=== PATIENT | male | born 1945 | race Caucasian/White ===

== ENCOUNTER 2020-01-26 17:05 | Inpatient (IN) | payer MEDICARE, OTHER ==
[~2020-01-26] VITALS: Ht 180.3 cm; Wt 133.2 kg
[2020-01-26] MEDS ORDERED: FLOMAX0.4 MG PO (17:21)
[2020-01-26] MEDS ORDERED: METFORMIN HCL500 M1 PO (17:22)
[2020-01-26] MEDS ORDERED: OMEPRAZOLE20 M1 (17:22)
[2020-01-26] MEDS ORDERED: COZAAR50 MG PO (17:22)
[2020-01-26] MEDS ORDERED: BAYER CHEWABLE81 MG PO (17:23)
[2020-01-26] MEDS ORDERED: CRESTOR40 MG PO (17:23)
[2020-01-26] MEDS ORDERED: SYNTHROID150 MCG PO (17:23)
[2020-01-26] MEDS ORDERED: ASCORBIC ACID500 MG PO (17:24)
[2020-01-26] MEDS ORDERED: IBUPROFEN600 MG PO (17:24)
[2020-01-26] MEDS ORDERED: ALBUTEROL SULF8.5 GM (17:25)
[2020-01-26] MEDS ORDERED: NITROQUICK0.4 MG SL (17:25)
[2020-01-26] MEDS ORDERED: MEDROL DOSE PACK4 MG PO (17:26)
[2020-01-26] MEDS ORDERED: AUGMENTIN 875-11 TAB PO (17:27)
[2020-01-26 17:58] LABS: BASOPHILS 0.1 % (0-2); EOSINOPHILS 0.1 % (0-7); HEMATOCRIT 40.8 % (42.0-54.0); HEMOGLOBIN 13.5 g/dL (13.5-17.5); IMMATURE GRANULOCYTES 0.2 % (0-5); MCH 29.5 pg (26.0-34.0); MCHC 33.1 g/dL (31.0-37.0); MCV 89.1 fL (80.0-100.0); MONOCYTES 6.9 % (2-11); NEUTROPHILS 78.7 % (40-80); PLATELET COUNT 291 10x3/uL (130-400); RBC 4.58 10x6/uL (4.20-6.10); RDW 13.7 % (11.5-14.5); WBC 12.8 10x3/uL (4.8-10.8)
[2020-01-26 18:08] LABS: CALC OSMOLALITY 293 mosm/kg (275-300); CARBON DIOXIDE 24.9 mmol/L (21.0-32.0); CHLORIDE - SERUM 108 mmol/L (98-107); CREATININE - SERUM 1.2 mg/dL (0.6-1.3); GLUCOSE 171 mg/dL (74-106); POTASSIUM - SERUM 4.1 mmol/L (3.5-5.1); SODIUM 143 mmol/L (136-145); UREA NITROGEN 26 mg/dL (7-18); eGFR NON AFRICAN AMERICAN 63 mL/min (90-120)
[2020-01-26 18:16] LABS: APTT 28.8 SECONDS (22.8-39.4); INR 0.96 (0.85-1.17); PROTIME 12.7 SECONDS (11.6-15.0)
[2020-01-26 18:31] LABS: ALBUMIN 3.9 g/dL (3.4-5.0); ALKALINE PHOSPHATASE 90 U/L (30-120); ALT (SGPT) 26 U/L (10-68); BILIRUBIN - TOTAL 0.23 mg/dL (0.2-1.3); CKMB 1.7 U/L (0.0-3.6); CREATINE KINASE 167 UL (21-232); PROTEIN - SERUM 7.5 g/dL (6.4-8.2)
[2020-01-26 18:44] LABS: TROPONIN-I 0.063 ng/mL (0.000-0.060)
--- NOTE | 2020-01-26 18:44 | NUR ---
LACTIC ACID OF 2.2 TROPONIN 0.063 CALLED BY NARDA GRADES 1 THRU 6 VISITING TEACHER AT THIS TIME.
--- NOTE | 2020-01-26 21:50 | NUR ---
RECEIVED FROM ER. A&OX4, [id number] @[id number], MEDS AND HISTORY COMPLETE, PLACED ON [id number], BED IS LOW, SRX2, CALL LIGHT IN REACH, SET UP PT CPAP, AT BEDSIDE, WILL CONTINUE PLAN OF CARE
[2020-01-26 23:24] LABS: CKMB 3.6 U/L (0.0-3.6); CREATINE KINASE 151 UL (21-232); TROPONIN-I 0.633 ng/mL (0.000-0.060)
[2020-01-27 01:16] VITALS: BP 115/67
[2020-01-27 02:08] LABS: BASOPHILS 0.1 % (0-2); EOSINOPHILS 0.6 % (0-7); HEMATOCRIT 35.6 % (42.0-54.0); HEMOGLOBIN 11.5 g/dL (13.5-17.5); IMMATURE GRANULOCYTES 0.5 % (0-5); LYMPHOCYTES 26.4 % (15-50); MCH 28.8 pg (26.0-34.0); MCHC 32.3 g/dL (31.0-37.0); MCV 89.2 fL (80.0-100.0); MEAN PLATELET VOLUME 8.8 fL (7.4-10.4); MONOCYTES 10.4 % (2-11); PLATELET COUNT 256 10x3/uL (130-400); RBC 3.99 10x6/uL (4.20-6.10)
[2020-01-27 02:34] LABS: WBC 8.8 10x3/uL (4.8-10.8)
--- NOTE | 2020-01-27 02:47 | NUR ---
HR-58 DECREASED CARDIZEM TO 5
[2020-01-27 03:04] LABS: CALCIUM 8.4 mg/dL (8.5-10.1); CARBON DIOXIDE 24.2 mmol/L (21.0-32.0); CHLORIDE - SERUM 110 mmol/L (98-107); CKMB 3.9 U/L (0.0-3.6); CREATINE KINASE 137 UL (21-232); CREATININE - SERUM 1.1 mg/dL (0.6-1.3); PHOSPHOROUS 3.5 mg/dL (2.5-4.9); POTASSIUM - SERUM 4.3 mmol/L (3.5-5.1); PRO BNP 859 pg/mL (0-125); SODIUM 143 mmol/L (136-145); UREA NITROGEN 23 mg/dL (7-18); eGFR NON AFRICAN AMERICAN 70 mL/min (90-120)
[2020-01-27 03:22] LABS: CALC OSMOLALITY 289 mosm/kg (275-300); GLUCOSE 112 mg/dL (74-106); TROPONIN-I 0.781 ng/mL (0.000-0.060)
--- NOTE | 2020-01-27 05:00 | NUR ---
ADMISSION ASSESSMENT COMPLETED.
[2020-01-27 05:45] VITALS: BP 106/67
[2020-01-27 06:31] VITALS: BP 115/67; BMI 42.5
[2020-01-27 07:56] LABS: CKMB 3.8 U/L (0.0-3.6); CREATINE KINASE 131 UL (21-232)
--- NOTE | 2020-01-27 08:20 | NUR ---
NEW BAG OF CARDIZEM GIVEN AT THIS TIME AND ALSO GAVE AM MEDS. PT A/O X4, RESP EVEN AND NONLABORED ON RA. PT DENIES ANY NEEDS AT THIS TIME. CALL LIGHT IN REACH,NAD NOTED, WILL CONTINUE TO MONITOR.
[2020-01-27 13:22] VITALS: Ht 180.3 cm; Wt 133.2 kg
[2020-01-27 13:33] VITALS: BP 139/73
[2020-01-27 17:19] LABS: SPECIFIC GRAVITY 1.015 (1.005-1.020)
[2020-01-27 17:20] LABS: BILIRUBIN NEGATIVE (NEGATIVE); GLUCOSE NEGATIVE (NEGATIVE); KETONE NEGATIVE (NEGATIVE); NITRITE NEGATIVE (NEGATIVE); UROBILINOGEN NORMAL (NORMAL)
--- NOTE | 2020-01-27 18:34 | NUR ---
RESP CULTURE NOT COLLECTED DUE TO PT NOT PRODUCING ANY SPUTUM.
--- NOTE | 2020-01-27 19:30 | NUR ---
REPORT RECIEVED AND INITIAL ROUNDS COMPLETED. PT RESTING IN BED. NO DISTRESS. CALL LIGHT IN REACH. BED LOW. CPOC.
[2020-01-27 20:00] VITALS: BP 133/63
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
[2020-01-28] VITALS: BP 126/69
[2020-01-28 04:00] VITALS: BP 131/60
[2020-01-28 05:49] LABS: BASOPHILS 0.3 % (0-2); EOSINOPHILS 2.5 % (0-7); HEMATOCRIT 38.8 % (42.0-54.0); HEMOGLOBIN 12.7 g/dL (13.5-17.5); IMMATURE GRANULOCYTES 0.3 % (0-5); LYMPHOCYTES 37.7 % (15-50); MCH 28.9 pg (26.0-34.0); MCHC 32.7 g/dL (31.0-37.0); MCV 88.4 fL (80.0-100.0); MEAN PLATELET VOLUME 8.9 fL (7.4-10.4); NEUTROPHILS 51.2 % (40-80); PLATELET COUNT 276 10x3/uL (130-400); RBC 4.39 10x6/uL (4.20-6.10); RDW 13.9 % (11.5-14.5); WBC 7.7 10x3/uL (4.8-10.8)
[2020-01-28 06:22] LABS: CALC OSMOLALITY 283 mosm/kg (275-300); CALCIUM 8.3 mg/dL (8.5-10.1); CARBON DIOXIDE 24.9 mmol/L (21.0-32.0); CHLORIDE - SERUM 106 mmol/L (98-107); CREATININE - SERUM 0.9 mg/dL (0.6-1.3); GLUCOSE 118 mg/dL (74-106); MAGNESIUM - SERUM 1.7 mg/dL (1.8-2.4); PHOSPHOROUS 3.6 mg/dL (2.5-4.9); POTASSIUM - SERUM 3.9 mmol/L (3.5-5.1); SODIUM 141 mmol/L (136-145); UREA NITROGEN 18 mg/dL (7-18); eGFR NON AFRICAN AMERICAN 88 mL/min (90-120)
--- NOTE | 2020-01-28 07:56 | NUR ---
PT SITTING ON SIDE OF BED. FAMILY MEMBER AT BEDSIDE. PT BEING ASSISTED WITH BED BATH BY FAMILY MEMBER. DENIES NEEDS OR PAIN AT THIS TIME. RR EVEN AND UNLABORED. AXO. CALL LIGHT WITHIN REACH. BED IN LOWEST POSITION. WILL CONTINUE TO MONITOR.
--- NOTE | 2020-01-28 10:23 | NUR ---
I have reviewed this patient and I concur with the Shift Assessment completed by the Licensed Practical Nurse today this shift.
[2020-01-28 10:25] VITALS: BP 127/83
[2020-01-28 13:58] VITALS: BP 125/73
[2020-01-28 17:38] VITALS: BP 115/67
--- NOTE | 2020-01-28 19:15 | NUR ---
RECEIVED REPORT, WILL ASSUME CARE OF PT, WALKING IN BRAMBILA WITH , WILL CONTINUE PLAN OF CARE
[2020-01-28 20:00] VITALS: BP 123/78
[2020-01-29] VITALS: BP 117/60
[2020-01-29 04:00] VITALS: BP 143/71
[2020-01-29 05:02] LABS: BASOPHILS 0.3 % (0-2); EOSINOPHILS 2.9 % (0-7); HEMATOCRIT 39.6 % (42.0-54.0); HEMOGLOBIN 12.9 g/dL (13.5-17.5); IMMATURE GRANULOCYTES 0.4 % (0-5); LYMPHOCYTES 37.4 % (15-50); MCH 28.7 pg (26.0-34.0); MCHC 32.6 g/dL (31.0-37.0); MCV 88.2 fL (80.0-100.0); MEAN PLATELET VOLUME 8.9 fL (7.4-10.4); MONOCYTES 8.4 % (2-11); NEUTROPHILS 50.6 % (40-80); PLATELET COUNT 275 10x3/uL (130-400); RBC 4.49 10x6/uL (4.20-6.10); RDW 13.7 % (11.5-14.5); WBC 7.6 10x3/uL (4.8-10.8)
--- NOTE | 2020-01-29 05:10 | NUR ---
I have reviewed this patient and I concur with the Shift Assessment completed by the Licensed Practical Nurse today this shift.
[2020-01-29 05:21] LABS: CALCIUM 8.4 mg/dL (8.5-10.1); CARBON DIOXIDE 27.3 mmol/L (21.0-32.0); CREATININE - SERUM 1.1 mg/dL (0.6-1.3); MAGNESIUM - SERUM 2.1 mg/dL (1.8-2.4); PHOSPHOROUS 3.8 mg/dL (2.5-4.9); POTASSIUM - SERUM 4.3 mmol/L (3.5-5.1)
[2020-01-29 08:08] VITALS: BP 135/76
[2020-01-29 11:00] VITALS: BP 107/45
--- NOTE | 2020-01-29 11:30 | NUR ---
SHOWER AND COMPLETE LINEN CHANGED AT THIS TIME. PT DENIES ANY NEEDS AT THIS TIME. SPOUSE AT BEDSIDE, CALL LIGHT IN REACH, NAD NOTED, WILL CONTINUE TO MONITOR.
[2020-01-29 20:00] VITALS: BP 109/70
[2020-01-30] VITALS: BP 109/61
[2020-01-30 04:00] VITALS: BP 131/76
--- NOTE | 2020-01-30 05:40 | NUR ---
I have reviewed this patient and I concur with the Shift Assessment completed by the Licensed Practical Nurse today this shift.
[2020-01-30 06:21] LABS: BASOPHILS 0.4 % (0-2); EOSINOPHILS 2.7 % (0-7); HEMATOCRIT 39.8 % (42.0-54.0); HEMOGLOBIN 12.8 g/dL (13.5-17.5); IMMATURE GRANULOCYTES 0.4 % (0-5); LYMPHOCYTES 34.5 % (15-50); MCH 28.8 pg (26.0-34.0); MCHC 32.2 g/dL (31.0-37.0); MCV 89.6 fL (80.0-100.0); MONOCYTES 6.4 % (2-11); NEUTROPHILS 55.6 % (40-80); PLATELET COUNT 289 10x3/uL (130-400); RBC 4.44 10x6/uL (4.20-6.10); RDW 13.5 % (11.5-14.5); WBC 7.9 10x3/uL (4.8-10.8)
[2020-01-30 06:30] LABS: ANION GAP 10.7 mmol/L (8-16); CALCIUM 8.3 mg/dL (8.5-10.1); CARBON DIOXIDE 26.3 mmol/L (21.0-32.0); CREATININE - SERUM 1.1 mg/dL (0.6-1.3); MAGNESIUM - SERUM 1.9 mg/dL (1.8-2.4); PHOSPHOROUS 3.9 mg/dL (2.5-4.9)
--- NOTE | 2020-01-30 09:02 | NUR ---
AM MEDS GIVEN AT THIS TIME. PT A/O X4, RESP EVEN AND NONLABORED ON RA. PT UP TO CHAIR, DENIES ANY NEEDS AT THIS TIME. CALL LIGHT IN REACH, NAD NOTED,W [place] CONTINUE TO MONITOR.
[2020-01-30 09:41] VITALS: BP 104/59
--- NOTE | 2020-01-30 10:24 | NUR ---
Nutrition Follow-up: Eating well. Noted ok to d/c per cards. Diet: Diabetic, Cardiac PO intake: 50-75% Wt: 293# (01/27) Last BM: 01/29 Labs noted: Glu 119, Ca 8.3 Meds noted: Protonix, 1/2NS @ 50 -Continue current diet as tolerated. -Need new wt; noted daily wts ordered. -RD following.
[2020-01-30 12:47] VITALS: BP 102/66
[2020-01-30] MEDS ORDERED: BETAPACE 80 MG80 MG PO (16:25)
[2020-01-30] MEDS ORDERED: XARELTO15 MG PO (16:27)
[2020-01-30] MEDS ORDERED: DOXYCYCLINE HY100 M2 PO (16:28)
[2020-01-30 16:56] VITALS: BP 128/83
--- NOTE | 2020-01-30 17:12 | NUR ---
PROVIDED VERBAL AND WRITTEN DISCHARGE TEACHING. D/C LT HAND IV WITH CATHETER TIP INTACT. HEART MONITOR REMOVED AND TAKEN TO MEDICAL BILLING REPRESENTATIVE. PT WILL NOTIFY WHEN READY FOR WHEELCHAIR.
== END 2020-01-30 18:58 | disposition home or self-care (01) | DRG 280 ==
LOC: D.ER 17:05 → OBSVTIME 19:28 → D.M2 19:28
PROVIDERS: Family Medicine; ADMIT Internal Medicine Nephrology; ATTEND Internal Medicine Nephrology
DX: I48.19 Other persistent atrial fibrillation (principal); J18.9 Pneumonia, unspecified organism; I21.A1 Myocardial infarction type 2; N17.9 Acute kidney failure, unspecified; Z68.41 Body mass index [BMI] 40.0-44.9, adult; E66.01 Morbid (severe) obesity due to excess calories; E11.9 Type 2 diabetes mellitus without complications; I25.10 Atherosclerotic heart disease of native coronary artery without angina pectoris; I10 Essential (primary) hypertension; E03.9 Hypothyroidism, unspecified